=== PATIENT | female | born 1990 | race Caucasian/White ===

== ENCOUNTER 2017-05-23 10:08 | Emergency (ER) | payer OTHER ==
--- NOTE | 2017-05-23 10:25 | EDM.PDOC ---
ED HPI GENERAL MEDICAL PROBLEM - General Chief Complaint: General Stated Complaint: RIGHT SIDE ABDOMINAL PAIN Time Seen by Provider: 05/23/17 10:23 Source of Information: Reports: Patient History Limitations: Reports: No Limitations - History of Present Illness INITIAL COMMENTS - FREE TEXT/NARRATIVE: History of present illness: [27-year-old female presenting with right-sided abdominal pain patient indicates it is the upper and lower quadrant and is unable to specify specific region. Patient indicates that she was seen by her provider last week for this and it had felt somewhat better but now is returned and it is worse.] Review of systems: As per history of present illness and below otherwise all systems reviewed and negative. Past medical history: As per history of present illness and as reviewed below otherwise noncontributory. Surgical history: As per history of present illness and as reviewed below otherwise noncontributory. Social history: No reported history of drug or alcohol abuse. Family history: As per history of present illness and as reviewed below otherwise noncontributory. Physical exam: HEENT: Atraumatic, normocephalic, pupils reactive, negative for conjunctival pallor or scleral icterus, mucous membranes moist, throat clear, neck supple, nontender, trachea midline. Lungs: Clear to auscultation, breath sounds equal bilaterally, chest nontender. Heart: S1S2, regular, negative for clicks, rubs, or JVD. Abdomen: Soft, nondistended, right-sided abdominal pain Negative for masses or hepatosplenomegaly. Negative for costovertebral tenderness. Pelvis: Stable nontender. Genitourinary: Deferred. Rectal: Deferred. Extremities: Atraumatic, negative for cords or calf pain. Neurovascular unremarkable. Neuro: Awake, alert, oriented. Cranial nerves II through XII unremarkable. Cerebellum unremarkable. Motor and sensory unremarkable throughout. Exam nonfocal. Diagnostics: CBC, CMP, amylase, lipase, UA, urine hCG, CT of abdomen with contrast Therapeutics: [IV fluid] Impression: [Colitis] Plan: [Cipro Flagyl] Definitive disposition and diagnosis as appropriate pending reevaluation and review of above. abdomen Pain Score (Numeric/FACES): 8 - Related Data Allergies Allergy/AdvReac Type Severity Reaction Status Date / Time No Known Allergies Allergy Verified 05/23/17 10:19 Home Meds: Home Meds Ciprofloxacin [Ciprofloxacin HCl] 500 mg PO BID #20 tablet 05/23/17 [Rx] Metronidazole [IJD: metroNIDAZOLE] 500 mg PO .EVERY 8 HOURS #30 tab 05/23/17 [Rx ] ED ROS GENERAL - Review of Systems Review Of Systems: See Below (See history of present illness) ED EXAM, GENERAL - Physical Exam Exam: See Below (History of present illness) Course - Vital Signs Last Recorded V/S: Last Vital Signs Temp 37.1 C 05/23/17 10:19 Pulse 99 05/23/17 10:19 Resp 18 05/23/17 10:19 BP 146/83 H 05/23/17 10:19 Pulse Ox 96 05/23/17 10:19 - Orders/Labs/Meds Orders: Active Orders 24 hr Category Date Time Status Abdomen Pelvis w Cont [CT] Stat Exams 05/23/17 11:49 Taken Labs: Laboratory Tests 05/23/17 05/23/17 05/23/17 Range/Units 10:35 10:35 10:35 WBC 11.52 H (4.0-11.0) K/uL RBC 4.47 (4.30-5.90) M/uL Hgb 13.4 (12.0-16.0) g/dL Hct 40.6 (36.0-46.0) % MCV 90.8 (80.0-98.0) fL MCH 30.0 (27.0-32.0) pg MCHC 33.0 (31.0-37.0) g/dL RDW Std Deviation 43.8 (28.0-62.0) fl RDW Coeff of Redd 13 (11.0-15.0) % Plt Count 282 (150-400) K/uL MPV 10.50 (7.40-12.00) fL Neut % (Auto) 84.5 H (48.0-80.0) % Lymph % (Auto) 8.4 L (16.0-40.0) % [place] % (Auto) 6.9 (0.0-15.0) % Eos % (Auto) 0.1 (0.0-7.0) % Baso % (Auto) 0.1 (0.0-1.5) % Neut # (Auto) 9.7 H (1.4-5.7) K/uL Lymph # (Auto) 1.0 (0.6-2.4) K/uL [place] # (Auto) 0.8 (0.0-0.8) K/uL Eos # (Auto) 0.0 (0.0-0.7) K/uL Baso # (Auto) 0.0 (0.0-0.1) K/uL Nucleated RBC % 0.0 /100WBC Nucleated RBCs # 0 K/uL Sodium 136 (136-146) mmol/L Potassium 4.0 (3.5-5.1) mmol/L Chloride 106 (98-110) mmol/L Carbon Dioxide 18 L (21-31) mmol/L BUN 9 (6.0-23.0) mg/dL Creatinine 0.8 (0.6-1.5) mg/dL Est Cr Clr Drug Dosing 100.90 mL/min Estimated GFR (MDRD) > 60.0 ml/min Glucose 92 (60-110) mg/dL Calcium 9.2 (8.8-10.8) mg/dL Total Bilirubin 0.4 (0.1-1.5) mg/dL AST 20 (5-40) IU/L ALT 15 (8-54) IU/L Alkaline Phosphatase 86 (40-150) Total Protein 7.9 (6.0-8.0) g/dL Albumin 4.2 (3.5-5.0) g/dL Globulin 3.7 H (2.0-3.5) g/dL Albumin/Globulin Ratio 1.1 L (1.3-2.8) Amylase 133 H (10-90) U/L Lipase 177 H (7-80) U/L HCG, Qual NEGATIVE (NEG) Urine Color Urine Appearance Urine pH (5.0-8.0) Ur Specific [place] (1.001-1.035) Urine Protein (NEGATIVE) mg/dL Urine Glucose (UA) (NEGATIVE) mg/dL Urine Ketones (NEGATIVE) mg/dL Urine Occult Blood (NEGATIVE) Urine Nitrite (NEGATIVE) Urine Bilirubin (NEGATIVE) Urine Urobilinogen (<2.0) EU/dL Ur Leukocyte Esterase (NEGATIVE) Urine RBC (0-2/HPF) Urine WBC (0-5/HPF) Ur Epithelial Cells (NONE-FEW) Urine Bacteria (NEGATIVE) 05/23/17 Range/Units 11:55 WBC (4.0-11.0) K/uL RBC (4.30-5.90) M/uL Hgb (12.0-16.0) g/dL Hct (36.0-46.0) % MCV (80.0-98.0) fL MCH (27.0-32.0) pg MCHC (31.0-37.0) g/dL RDW Std Deviation (28.0-62.0) fl RDW Coeff of Redd (11.0-15.0) % Plt Count (150-400) K/uL MPV (7.40-12.00) fL Neut % (Auto) (48.0-80.0) % Lymph % (Auto) (16.0-40.0) % [place] % (Auto) (0.0-15.0) % Eos % (Auto) (0.0-7.0) % Baso % (Auto) (0.0-1.5) % Neut # (Auto) (1.4-5.7) K/uL Lymph # (Auto) (0.6-2.4) K/uL [place] # (Auto) (0.0-0.8) K/uL Eos # (Auto) (0.0-0.7) K/uL Baso # (Auto) (0.0-0.1) K/uL Nucleated RBC % /100WBC Nucleated RBCs # K/uL Sodium (136-146) mmol/L Potassium (3.5-5.1) mmol/L Chloride (98-110) mmol/L Carbon Dioxide (21-31) mmol/L BUN (6.0-23.0) mg/dL Creatinine (0.6-1.5) mg/dL Est Cr Clr Drug Dosing mL/min Estimated GFR (MDRD) ml/min Glucose (60-110) mg/dL Calcium (8.8-10.8) mg/dL Total Bilirubin (0.1-1.5) mg/dL AST (5-40) IU/L ALT (8-54) IU/L Alkaline Phosphatase (40-150) Total Protein (6.0-8.0) g/dL Albumin (3.5-5.0) g/dL Globulin (2.0-3.5) g/dL Albumin/Globulin Ratio (1.3-2.8) Amylase (10-90) U/L Lipase (7-80) U/L HCG, Qual (NEG) Urine Color YELLOW Urine Appearance CLEAR Urine pH 6.0 (5.0-8.0) Ur Specific [place] <= 1.005 (1.001-1.035) Urine Protein NEGATIVE (NEGATIVE) mg/dL Urine Glucose (UA) NEGATIVE (NEGATIVE) mg/dL Urine Ketones NEGATIVE (NEGATIVE) mg/dL Urine Occult Blood SMALL H (NEGATIVE) Urine Nitrite NEGATIVE (NEGATIVE) Urine Bilirubin NEGATIVE (NEGATIVE) Urine Urobilinogen 0.2 (<2.0) EU/dL Ur Leukocyte Esterase NEGATIVE (NEGATIVE) Urine RBC 0-2 (0-2/HPF) Urine WBC 0-1 (0-5/HPF) Ur Epithelial Cells FEW (NONE-FEW) Urine Bacteria FEW (NEGATIVE) Meds: Medications Discontinued Medications Generic Name Dose Route Start Last Admin Trade Name Freq PRN Reason Stop Dose Admin Sodium Chloride 1,000 mls @ 999 mls/hr 05/23/17 10:26 05/23/17 10:37 Normal Saline IV 05/23/17 11:26 999 mls/hr STAT ONE Administration Iopamidol 100 ml 05/23/17 11:54 05/23/17 11:55 Isovue Multipack-370 (76%) IVPUSH 05/23/17 11:55 100 ml ONETIME STA Administration Departure - Departure Time of Disposition: 13:38 Disposition: Home, Self-Care 01 Condition: Good Clinical Impression: Colitis - Discharge Information Additional Instructions: The following information is given to patients seen in the emergency department who are being discharged to home. This information is to outline your options for follow-up care. We provide all patients seen in our emergency department with a follow-up referral. The need for follow-up, as well as the timing and circumstances, are variable depending upon the specifics of your emergency department visit. If you don't have a primary care physician on staff, we will provide you with a referral. We always advise you to contact your personal physician following an emergency department visit to inform them of the circumstance of the visit and for follow-up with them and/or the need for any referrals to a consulting specialist. The emergency department will also refer you to a specialist when appropriate. This referral assures that you have the opportunity for follow-up care with a specialist. All of these measure are taken in an effort to provide you with optimal care, which includes your follow-up. Under all circumstances we always encourage you to contact your private physician who remains a resource for coordinating your care. When calling for follow-up care, please make the office aware that this follow-up is from your recent emergency room visit. If for any reason you are refused follow-up, please contact the [facility] Emergency Department at and asked to speak to the emergency department charge nurse. Take medication as directed Follow-up with PCP 1-2 days Return to ED as needed as discussed - My Orders Last 24 Hours: My Active Orders 05/23/17 11:49 Abdomen Pelvis w Cont [CT] Stat - Assessment/Plan Last 24 Hours: My Active Orders 05/23/17 11:49 Abdomen Pelvis w Cont [CT] Stat
[2017-05-23] MEDS ORDERED: Sodium Chloride 0.9% 1,000 ML IV ONE (10:26)
[2017-05-23 11:07] LABS: CHLORIDE,CL 106 mmol/L (98-110); SODIUM,NA 136 mmol/L (136-146)
[2017-05-23] MEDS ORDERED: Iopamidol 755 MG/ML 500 ML Multipack Bottle IVPUSH STA (11:54)
[2017-05-23 14:16] VITALS: BP 130/80
--- NOTE | 2017-05-23 20:13 | CT ---
EXAM DATE: 05/23/17 PATIENT'S AGE: 27 Patient: JUANITA TREJO Facility: [place], [place] Site . Site : 1990 Study: CT Abdomen/Pelvis [id number]/5/2017 12:40:09 PM Ordering Physician: Doctor Sim Final Report: INDICATION: RLQ PAIN W/FEVER X [address] ABDOMEN AND PELVIS WITH CONTRAST TECHNIQUE: Multidetector CT imaging was performed through the abdomen and pelvis following intravenous contrast administration using 100 mL Isovue 370. Coronal and sagittal reconstructions were generated. COMPARISON: None. FINDINGS: Lower chest: Minimal basilar lung atelectasis. Liver: Unremarkable aside from a very small probable cyst in the posterior dome of the right hepatic lobe. Gallbladder and bile ducts: No gallbladder wall thickening or calcified gallstones. No biliary dilation identified. Pancreas: Unremarkable. Spleen: Normal. Adrenals: No nodules or masses. Kidneys, ureters, and urinary bladder: No renal masses or hydronephrosis. No bladder mass or definite wall thickening. Gastrointestinal tract: Normal caliber small bowel without wall thickening or obstruction. The appendix is normal. Mild colonic wall thickening, greatest from the mid transverse colon through the sigmoid, consistent with colitis. Vascular structures: Normal for age. Peritoneum: No free air, abscess, or significant free fluid. Lymph nodes: No pathologically enlarged nodes identified. Reproductive organs: No pelvic masses. Bones: Normal for age. IMPRESSION: Mild colonic wall thickening consistent with a nonspecific colitis. NESTOR HALLMAN MD [employer] Dictated by Winston Hallman MD @ 05/23/2017 12:52:41 PM Dictated by: Winston Hallman MD @ 05/23/2017 12:55:18 (Electronic Signature) Report Signed by Proxy. [facility]
== END 2017-05-23 14:12 | disposition home or self-care (01) ==
LOC: MW.ED 10:08
DX: K52.9 Noninfective gastroenteritis and colitis, unspecified (principal)
CPT/HCPCS: 36415; 74177; 80053; 81001; 82150; 83690; 84703; 85025; 96360; 99284; J7040; Q9967; 99283

== ENCOUNTER 2018-07-10 08:33 | Day surgery (SDC) | payer OTHER ==
[~2018-07-10 08:33] MED LIST: Aloe Vera/Sodium Chloride Gel 14.1 GM Tube ONE; Lactated Ringers 1,000 ML IV SCH; Lidocaine 1% 20 ML MDV ONE; Oxymetazoline 0.05% Nasal Spray 15 ML Bottle ONE
[2018-07-10] MEDS ORDERED: Lidocaine 2% 5 ML SDV ONE (08:52)
[2018-07-10] MEDS ORDERED: Midazolam 1 MG/ML 2 ML SDV ONE (08:53)
[2018-07-10] MEDS ORDERED: Propofol 200 MG/20 ML SDV ONE ×2 (08:53→10:05)
[2018-07-10] MEDS ORDERED: fentaNYL 250 MCG/5 ML SDV ONE (08:53)
[2018-07-10] MEDS ORDERED: Sugammadex Sodium 200 MG/2 ML VIAL ONE (08:55)
[2018-07-10] MEDS ORDERED: Rocuronium 10 MG/ML 10 ML Syringe ONE (08:56)
[2018-07-10] MEDS ORDERED: Ondansetron 4 MG/2 ML SDV ONE (08:56)
[2018-07-10] MEDS ORDERED: Dexamethasone 4 MG/ML 5 ML MDV ONE (08:56)
[2018-07-10] MEDS ORDERED: HYDROmorphone 2 MG/ML SDV ONE (08:57)
[2018-07-10] MEDS ORDERED: fentaNYL 100 MCG/2 ML SDV ONE ×2 (08:57→11:28)
[2018-07-10] MEDS ORDERED: Lidocaine 2% with EPINEPHrine 1:100,000 20 ML MDV ONE (09:03)
--- NOTE | 2018-07-10 09:14 | PCM.HPR ---
H & P Addendum review - H & P Addendum Review Date of Original H & P: 07/02/18 Date Reviewed: 07/10/18 Time Reviewed: 09:00 Patient was Examined: No Changes
--- NOTE | 2018-07-10 09:23 | PCM.PREANE ---
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) - Physical Assessment NPO Status Date: 07/09/18 NPO Status Time: 20:00 O2 Sat by Pulse Oximetry: 96 Respiratory Rate: 16 Vital Signs: Last Vital Signs Temp 98.2 F 07/10/18 08:59 Pulse 69 07/10/18 08:59 Resp 16 07/10/18 08:59 BP 123/81 07/10/18 08:59 Pulse Ox 96 07/10/18 08:59 Height: 5 ft 7 in Weight: 165 lb ASA Class: 2 Mental Status: Alert & Oriented x3 Airway Class: Mallampati = 1 Dentition: Reports: Normal Dentition Thyro-Mental Finger Breadths: 3 Mouth Opening Finger Breadths: 3 ROM/Head Extension: Full Lungs: Clear to Auscultation, Normal Respiratory Effort Cardiovascular: Regular Rate, Regular Rhythm, No Murmurs - Lab Values: Laboratory Last Values Urine HCG, Qual NEGATIVE (NEGATIVE) 07/10/18 08:45 - Allergies Allergies/Adverse Reactions: Allergies Allergy/AdvReac Type Severity Reaction Status Date / Time No Known Allergies Allergy Verified 07/05/18 10:26 - Blood Blood Available: No Product(s) Available: None - Anesthesia Plan Pre-Op Medication Ordered: None - Acknowledgements Anesthesia Type Planned: General Anesthesia Pt an Appropriate Candidate for the Planned Anesthesia: Yes Alternatives and Risks of Anesthesia Discussed w Pt/Guardian: Yes Pt/Guardian Understands and Agrees with Anesthesia Plan: Yes PreAnesthesia Questionnaire - Past Health History Medical/Surgical History: Denies Medical/Surgical History HEENT History: Reports: None Gastrointestinal History: Reports: Gastritis Other Gastrointestinal History: hx colitis Genitourinary History: Reports: Other (See Below) Other Genitourinary History: dysmenorrhea Musculoskeletal History: Reports: Fibromyalgia Other Musculoskeletal History: hx fx hand and thumb Neurological History: Reports: Concussion Psychiatric History: Reports: Anxiety Endocrine/Metabolic History: - Past Surgical History Head Surgeries/Procedures: Reports: None HEENT Surgical History: Reports: Oral Surgery Female Surgical History: Reports: JAYP - SUBSTANCE USE Smoking Status *Q: Never Smoker Recreational Drug Use History: No - HOME MEDS Home Medications: Home Meds Levonorgestrel-Ethin Estradiol [[place]-28 Tablet] 1 tab PO DAILY 07/05/18 [ History] Multivitamin with Minerals [Multiple Vitamin] 1 tab PO DAILY 07/05/18 [History] Naproxen Sodium [Aleve] 1 tab PO ASDIRECTED PRN 07/05/18 [History] Sertraline HCl 50 mg PO DAILY 07/05/18 [History] - CURRENT (IN HOUSE) MEDS Current Meds: Current Medications Lactated Ringer's (Ringers, Lactated) 1,000 mls @ 125 mls/hr IV ASDIRECTED RAMSEY Discontinued Medications Dexamethasone (Dexamethasone) Confirm Administered Dose 20 mg .ROUTE .STK-MED ONE Stop: 07/10/18 08:57 Fentanyl (Sublimaze) Confirm Administered Dose 250 mcg .ROUTE .STK-MED ONE Stop: 07/10/18 08:54 Fentanyl (Sublimaze) Confirm Administered Dose 100 mcg .ROUTE .STK-MED ONE Stop: 07/10/18 08:58 Hydromorphone HCl (Dilaudid) Confirm Administered Dose 2 mg .ROUTE .STK-MED ONE Stop: 07/10/18 08:58 Lidocaine (Xylocaine-Mpf 2%) Confirm Administered Dose 10 ml .ROUTE .STK-MED ONE Stop: 07/10/18 08:53 Lidocaine HCl (Xylocaine 1%) Confirm Administered Dose 20 ml .ROUTE .STK-MED ONE Stop: 07/10/18 07:44 Lidocaine/Epinephrine (Xylocaine 2% With Epinephrine 1:100,000) Confirm Administered Dose 20 ml .ROUTE .STK-MED ONE Stop: 07/10/18 09:04 Midazolam HCl (Versed 1 Mg/Ml) Confirm Administered Dose 2 mg .ROUTE .STK-MED ONE Stop: 07/10/18 08:54 Ondansetron HCl (Zofran) Confirm Administered Dose 8 mg .ROUTE .STK-MED ONE Stop: 07/10/18 08:57 Oxymetazoline HCl (Afrin Original 0.05% Nasal [place]) Confirm Administered Dose 15 ml .ROUTE .STK-MED ONE Stop: 07/10/18 07:44 Propofol (Diprivan 20 Ml) Confirm Administered Dose 1,000 mg .ROUTE .STK-MED ONE Stop: 07/10/18 08:54 Rocuronium [place] (Zemuron) Confirm Administered Dose 100 mg .ROUTE .STK-MED ONE Stop: 07/10/18 08:57 Sodium Chloride ([place] Saline Nasal Gel) Confirm Administered Dose 14.1 gm .ROUTE .[facility]-MED ONE Stop: 07/10/18 07:44 Sugammadex Sodium ([place]) Confirm Administered Dose 200 mg .ROUTE .[facility]-MED ONE Stop: 07/10/18 08:56
[2018-07-10] MEDS ORDERED: Oxymetazoline 0.05% Nasal Spray 15 ML Bottle ONE (12:25)
--- NOTE | 2018-07-10 12:40 | PCM.OPNOTE ---
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 Anesthesiologist: Huber RAMOS Date of procedure: 07/10/2018 Indications: Deviated nasal septum, hypertrophy of inferior nasal turbinates bilateral, jackson bullosa, nasal obstruction Findings: Bilateral inferior turbinate hypertrophy right more than left, right jackson bullosa- pneumatized head of middle turbinate on Right, left septal spur - impinging upon the inferior turbinate and dislocation of septal cartilage off the maxillary crest to the left; right nasal septal deviation An informed consent was obtained. A time out was performed and the patient was brought back to the operating room. Gen. anesthesia was administered with an endotracheal tube. The patient was then prepped and draped in a standard fashion. A 0 degree rigid nasal endoscope was used to examine bilateral nasal cavities and photo documentation was obtained. Bilateral inferior turbinates were infilatrated with 1% lidocaine - 2 mls were injected on each side. The right inferior turbinate was addressed first. A reflex PTR coblation wand with tip dipped in AYR Gel was used at setting of 6:2 for Coblation and coagulation respectively. The point of entry was coagulated and wand was inserted till the second marking. Two pettit were created in the single channel. The inferior turbinate was visibly shrunk. Similar procedure was repeated on the left side with visible reduction in size of turbinates. Head of right middle turbinate was injected with 2% lidocaine 1 end 100,000 epinephrine. Total 2 mils was injected. A stab incision was made into the head of turbinate with a sickle knife. This was further enlarged and the lateral aspect of the jackson bullosa was removed with a FESS scissor. Hemostasis was ensured. All loose bony chips were removed. Bilateral nasal cavities were then packed with oxymetazoline 0.05% soaked cottonoid pledgets. After an appropriate period of decongestion the pledgets were removed. Nasal septum was infiltrated with 2% lidocaine 1: 100, 000 epinephrine in a standard fashion-a total of 4 mils was used. Bilateral nasal cavities were packed with oxymetazoline 0.05% soaked cottonoid pledgets. The pledgets were then removed. A right sided kaylene incision was performed. A right sided mucoperichondrial flap was elevated-dissection was commenced with a daniel elevator and further carried out with combination of daniel and [place] elevators. Posteriorly the flap was continued as a muco periosteal flap. A vertical incision was then made in the septal cartilage 2 mm posterior to the mucoperichondrial incision. Left sided mucoperichondrial flaps were elevated and continued posteriorly as a mucoperiosteal flap. Sharp and careful dissection was performed to lift the flaps off the left sided spur along the floor. There was a tear in the flap on left side. A posterior chondrotomy was performed. A jonas scissor was used and the perpendicular plate of the ethmoid was removed. The vomer along with left-sided spur was also removed. The thin inferior strip of dislocated cartilage was also removed using a septal knife. Also approximately 1cm thin posterior strip of cartilage was removed posterior to the nasal spine. Subsequent to this the nasal septum was positioned towards the midline. There was a very small tear along the floor on the left side posteriorly ; flap was intact on the right side. Flap incision was sutured with 3-0 Vicryl posteriorly and 4.0 plain gut on a Ross needle was used to suture the incision. Bilateral Serna splints were inserted and held in place with 2.0 Prolene suture. Drip pad was applied. This concluded the procedure and the patient was turned over to the anesthesiologist for recovery. Specimens: none IV fluids: 1500 ml Blood loss: 15ml Blood products: Disposition: PACU for recovery Follow up: In 1 week for removal of splints.
[2018-07-10] MEDS: fentaNYL 100 MCG/2 ML SDV IVPUSH PRN ×2 (12:44→13:37)
--- NOTE | 2018-07-10 12:44 | PCM.POSTAN ---
POST ANESTHESIA ASSESSMENT - RESPIRATORY Respiratory Status: Respiratory Rate WNL, Airway Patent, O2 Saturation Stable - CARDIOVASCULAR CV Status: Pulse Rate WNL, Blood Pressure Stable - GASTROINTESTINAL GI Status: No Symptoms - PAIN Pain Score: 5 Free Text/Narrative:: getting IV tylenol and Fentanyl in PACU before going to day surgery - POST OP HYDRATION Hydration Status: Adequate & Stable
[2018-07-10] MEDS ORDERED: oxyCODONE 5 MG Tab PO PRN (13:29)
[2018-07-10 13:57] VITALS: BP 116/75
--- NOTE | 2018-07-10 14:25 | PCM48HPAN ---
Post Anesthesia Note - EVALUATION WITHIN 48HRS OF ANESTHETIC Vital Signs in Normal Range: Yes Patient Participated in Evaluation: Yes Respiratory Function Stable: Yes Airway Patent: Yes Cardiovascular Function Stable: Yes Hydration Status Stable: Yes Pain Control Satisfactory: Yes Nausea and Vomiting Control Satisfactory: Yes Mental Status Recovered: Yes Resp Rate: 16
== END 2018-07-10 15:20 | disposition home or self-care (01) ==
LOC: MW.SDS 08:33
PROVIDERS: ATTEND Otolaryngology
DX: J34.2 Deviated nasal septum (principal); J34.3 Hypertrophy of nasal turbinates; J34.9 Unspecified disorder of nose and nasal sinuses; J34.89 Other specified disorders of nose and nasal sinuses; J31.0 Chronic rhinitis; F41.9 Anxiety disorder, unspecified; Z79.899 Other long term (current) drug therapy
CPT/HCPCS: 30140; 30520; 31240; 81025; A9270; J0131; J1100; J1170; J2250; J2405; J2704; J3010; J3490; J7120